=== PATIENT | female | born 1970 | race Caucasian/White ===

== ENCOUNTER → 2018-02-23 11:59 | Outpatient (CLI) | payer BC, SELFPAY ==
[2018-02-23 13:14] LABS: Free T3 3.1 pg/mL (2.18-3.98); T4 Free Direct 0.88 ng/dL (0.76-1.46); Thyroid Stim Hormone (TSH) 2.12 uIU/mL (0.358-3.74)
[2018-02-24 11:28] LABS: Thyroid Peroxidase AB 30 IU/mL (0-34)
[2018-02-25 10:09] LABS: HPV Reflexed? NOT INDICATED
== END ==
PROVIDERS: Visit Provider Obstetrics & Gynecology
DX: N92.5 Other specified irregular menstruation (principal); E04.9 Nontoxic goiter, unspecified; R63.5 Abnormal weight gain; Z12.4 Encounter for screening for malignant neoplasm of cervix
CPT/HCPCS: 36415; 84439; 84443; 84481; 86376; 88175; G0145

== ENCOUNTER → 2018-11-25 12:22 | Outpatient (CLI) | payer BC, SELFPAY ==
--- NOTE | 2018-11-25 12:26 | BI_ITS ---
MAMMOGRAPHY - BILATERAL SCREENING REASON FOR EXAM: Female, 48 years old. Routine annual screening examination. PERTINENT HISTORY: Grandmother with breast cancer. TECHNIQUE: Digital bilateral breast elsa (3D mammographic acquisition) in the CC and MLO projections. 2-D mediolateral oblique (MLO) and craniocaudad (CC) views of both breasts were obtained. CAD: Full Field Digital Mammography with Computer Added Detection was performed. COMPARISON: Comparison is made with prior study dated September 25, 2017 and August 25, 2016. FINDINGS: Breast Composition: The breasts are extremely dense, which lowers the sensitivity of mammography. There are no dominant masses or suspicious calcifications. Stable benign appearing bilateral axillary nodes. No other significant abnormalities are identified. There has been no significant change since the prior study. BI/SCREENING MAMM (CAD), BILAT IMPRESSION: Stable bilateral screening mammogram. Yearly follow-up mammogram recommended. (A) ASSESSMENT CATEGORY: BIRADS Category 2: Benign. A letter regarding these results will be sent to the patient by the facility within 30 days. Approximately 10% of breast cancers are not detected by mammography. A normal mammogram should not delay biopsy of a clinically suspicious abnormality. [id number] Electronically Signed: Clint Morgan MD at 14:03 EST , Service support ,
== END ==
PROVIDERS: Family Provider Family Medicine; PCP Family Medicine; Referring Provider Obstetrics & Gynecology; Visit Provider Obstetrics & Gynecology
DX: Z12.31 Encounter for screening mammogram for malignant neoplasm of breast (principal)
CPT/HCPCS: 77063; 77067

== ENCOUNTER → 2020-09-07 08:44 | Outpatient (CLI) | payer BC, SELFPAY ==
--- NOTE | 2020-09-07 09:01 | US_ITS ---
STUDY: ULTRASOUND BREAST - RIGHT REASON FOR EXAM: Female, 50 years old. Palpable abnormality in the right axilla. TECHNIQUE: Axial and longitudinal images of the RIGHT breast were performed with a high resolution ultrasound transducer. # OF IMAGES: 25 COMPARISON: Comparison is made with prior mammogram done earlier in the day. FINDINGS: RIGHT Breast: 3 benign appearing right axillary lymph nodes are seen. The largest measures 2.2 cm x 2 cm x 1.1 cm. US/Breast Limited Unilateral IMPRESSION: 3 benign appearing axillary lymph nodes are seen. The largest measures 2.2 cm x 2 cm x 1.1 cm ASSESSMENT CATEGORY: BIRADS Category 2: Benign. A letter regarding these results will be sent to the patient by the facility within 30 days. Electronically Signed: Clint Morgan, at 10:37 EST , Service support ,
--- NOTE | 2020-09-07 09:01 | BI_ITS ---
MAMMOGRAPHY - BILATERAL DIAGNOSTIC REASON FOR EXAM: Female, 50 years old. Right axillary lump. PERTINENT HISTORY: Grandmother with breast cancer. TECHNIQUE: Digital bilateral breast elsa (3D mammographic acquisition) in the CC and MLO projections. 2-D mediolateral oblique (MLO) and craniocaudad (CC) views of both breasts were obtained. CAD: Full Field Digital Mammography with Computer Added Detection was performed. COMPARISON: Comparison is made with prior study dated 11/25/2018 and 09/25/2017. FINDINGS: Breast Composition: The breasts are extremely dense, which lowers the sensitivity of mammography. There are no dominant masses or suspicious calcifications. Stable benign-appearing bilateral axillary lymph nodes. No other significant abnormalities are identified. There has been no significant change since the prior study. BI/DIAG MAMM W/CAD, BILAT IMPRESSION: Stable bilateral diagnostic mammogram. With the patient''s history of palpable lump in the right axillary region, correlation with ultrasound is recommended. ASSESSMENT CATEGORY: BIRADS Category 0: Incomplete. Need additional imaging evaluation. A letter regarding these results will be sent to the patient by the facility within 30 days. Approximately 10% of breast cancers are not detected by mammography. A normal mammogram should not delay biopsy of a clinically suspicious abnormality. Electronically Signed: Clint Morgan, at 10:10 EST , Service support ,
== END ==
PROVIDERS: PCP Family Medicine; Referring Provider Obstetrics & Gynecology; Visit Provider Obstetrics & Gynecology
DX: N63.31 Unspecified lump in axillary tail of the right breast (principal); Z80.3 Family history of malignant neoplasm of breast
CPT/HCPCS: 76642; 77062; 77063; 77066; G0279

== ENCOUNTER → 2020-11-12 | Outpatient (CLI) | payer BC, SELFPAY ==
[2020-11-16 13:52] LABS: HPV APTIMA, High Risk Negative (Negative)
== END | disposition home or self-care (01) ==
LOC: LABSPEC 16:07
PROVIDERS: PCP Family Medicine; Visit Provider Obstetrics & Gynecology
DX: Z12.4 Encounter for screening for malignant neoplasm of cervix (principal)
CPT/HCPCS: 87624; 88175; G0145

== ENCOUNTER 2024-11-11 06:05 | Day surgery (SDC) | payer BC, SELFPAY ==
--- NOTE | 2024-11-10 12:49 | PCM.HP.BLA ---
History and Physical Date of Admission: 11/11/24 Expand All Collapse AllExpand All by Default Pre-Op History and Physical HPI: The patient is a 54 year old female presenting for pre-operative visit. She is scheduled for Hysteroscopy D&C and polypectomy, for PMB on 10/2424. Procedure discussed along with risks, benefits and complications. Other alternatives discussed for management. Consent form signed? Yes. PAST MEDICAL HISTORY PAST MEDICAL HISTORY Diagnosis Date ? Endometrial polyp ? Known health problems: none PAST SURGICAL HISTORY PAST SURGICAL HISTORY Procedure Laterality Date ? L'SCOPE DX W/WO BRUSHINGS/WASHINGS checking for endometriosis ? NONE CURRENT MEDICATIONS Current Outpatient Medications Medication Sig Dispense Refill ? buPROPion XL (WELLBUTRIN XL) 150 mg 24 hr tablet No current facility-administered medications for this visit. ALLERGIES: Patient has no known allergies. PERSONAL HISTORY: SOCIAL HISTORY Social History Tobacco Use ? Smoking status: Never ? Smokeless tobacco: Never Vaping Use ? Vaping status: Never Used Substance Use Topics ? Alcohol use: Never ? Drug use: Never FAMILY HISTORY: FAMILY HISTORY FAMILY HISTORY Problem Relation Age of Onset ? Thyroid Nodule Mother REVIEW OF SYMPTOMS: negative except as noted above PHYSICAL EXAMINATION: VITALS: Blood pressure 118/74, height 164.5 cm (5' 4.76), weight 79.8 kg (176 lb), last menstrual period 05/06/2022. GENERAL: The patient is well nourished, well hydrated in no acute distress. , The patient is oriented to time, place, and person. NECK: full range of motion WET PREP: Not indicated Indication Evaluation of abnormal uterine bleeding: postmenopausal bleeding Impression The uterus is anteverted and measures 88 mm x 42 mm x 53 mm. The endometrium is abnormally thickened and echogenic at 8.6 mm. There is an echogenic area within the anterior fundal endometrial cavity with a feeding vessel suspicious for an endometrial polyp that measures 13 mm x 6 mm x 10 mm. The right ovary measures 19 mm x 12 mm x 14 mm. and contains a 6 mm x 5 mm x 6 mm unilocular simple cyst. O-RADS 2 The left ovary measures 20 mm x 12 mm x 14 mm and contains a 11 mm x 4 mm x 7 mm bilocular cyst (single avascular septation) with smooth borders. O-RADS 2 There is no free fluid visualized. Technique: Three dimensional imaging was created on a dedicated stand-alone 3D workstation with images created and archived, and supervised and reviewed by the interpreting physician utilizing images from a US Scan performed on 08/09/24. IMPRESSION: 54yo with PMB, Endometrial polyp PLAN: hysteroscopy, D&C, polypectomy with symphion Pt has been counseled on risks/benefits and alternatives of surgery including but not limited to anesthesia, bleeding, infection, uterine perforation with subsequent injury to pelvic structures including bowel, bladder, ureters and vessels. Pt wishes to proceed with surgery at this time. Pre and post op instructions reviewed I have reviewed and updated past medical and surgical history, medications and allergies Medical Decision Making: Problems: Moderate: New problem with uncertain prognosis Risk: Moderate: Decision on minor surgery w/ risk factors Medical Decision Making Level: 4 - Moderate
[2024-11-11] VITALS (9 sets, daily range): BP systolic 104–125; BP diastolic 74–93; PULSE 61–71; RESP 14–16; TEMP 35.9–36.7; O2SAT 98–100; BMI 29.0
[2024-11-11 06:49] LABS: Hematocrit 39.8 % (37-47); Hemoglobin 13.5 g/dL (12.0-15.0); Mean Corp Hgb Conc 33.9 g/dL (32-36); Mean Corpuscular Volume 85.4 fL (81-99); Mean Platelet Vol. 10.6 fl (6.2-12.0); Platelet Count 254 K/mm3 (150-450); RBC Distribution Width CV 12.5 % (11.6-14.6); RBC Distribution Width SD 38.5 fl (35.1-43.9); Red Blood Count 4.66 M/mm3 (4.2-5.4); White Blood Count 5.9 K/mm3 (4.4-11.0)
[2024-11-11 07:03] LABS: Anion Gap 7 (5-15); BUN 16 mg/dL (7-18); BUN/Creat Ratio 13.4 RATIO (10-20); Chloride 108 mmol/L (98-107); Creatinine, Serum 1.19 mg/dL (0.55-1.02); EST Glomerular Filtration Rate 51 mL/min (>60); Est Glom Filt Rate - Afr Amer 61 mL/min (>60); Estimated Creatinine Clearance 57.44 ml/min; Glucose 92 mg/dL (74-106); Potassium 3.9 mmol/L (3.5-5.1); Sodium Level 139 mmol/L (136-145)
--- NOTE | 2024-11-11 07:19 | PRE.ANES_ITS ---
ASA Classification* ASA Classification ASA Classification: 2 Assessment & Plan Anesthesia* Anesthesia Assessment Anesthesia Assessment: Discussed sedation and/or anesthesia options, risks, benefits, and alternatives with patient/parents/legal guardian/POA. Questions invited. The patient/parents/legal guardian/POA seems to understand and agrees to proceed with anesthesia plan. Reviewed the physical assessment, medical history, allergy history and patient home medications list prior to surgery/procedure/anesthetic and documented any changes. Performed airway and anesthesia risk assessments. Anesthesia Type Anesthesia Type: MAC Anesthesia Focused Assessment* Temperature: 97.6 F Pulse Rate: 71 Blood Pressure: 120/93 Respiratory Rate: 16 Pulse Ox: 100 Airway Assessment Mouth opens: >3 cm Mallampati Score: II Teeth Condition: Intact and Caps/Crowns (botton left) Neck Range of motion (ROM): Full ROM Focused Labs Anesthesia Preop lab: CBC WBC 5.9 K/mm3 (4.4-11.0) 11/11/24 06:39 RBC 4.66 M/mm3 (4.2-5.4) 11/11/24 06:39 Hgb 13.5 g/dL (12.0-15.0) 11/11/24 06:39 Hct 39.8 % (37-47) 11/11/24 06:39 Plt Count 254 K/mm3 (150-450) 11/11/24 06:39 CHEMISTRY Potassium 3.9 mmol/L (3.5-5.1) 11/11/24 06:39 Sodium 139 mmol/L (136-145) 11/11/24 06:39 BUN 16 mg/dL (7-18) 11/11/24 06:39 Creatinine 1.19 mg/dL (0.55-1.02) H 11/11/24 06:39 Glucose 92 mg/dL (74-106) 11/11/24 06:39 TSH 2.12 uIU/mL (0.358-3.74) 02/23/18 12:03 COAG Pre-Assessment Diagnosis/Proposed Procedure Planned Operative Procedure(s): HYSTEROSCOPY D&C POLYPECTOMY Anesthesia History 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 When Was Last Pacemaker Check QUESTION #4 FULL TEXT: You/Your Family Experience fever (hyperthermia) with Anesthesia Last Oral Intake Last Oral intake: Last Oral Intake NPO since 22:00 11/11/24 06:29 Meds taken in AM with sips of No 11/11/24 06:29 water? Meds patient instructed to take am of surgery PONV PONV - venereal disease investigator: PONV - venereal disease investigator Female Yes 11/04/24 13:26 HX of Motion Sickness Yes 11/04/24 13:26 HX of N/V After Surgery No 11/04/24 13:26 Non-Smoker Yes 11/04/24 13:26 Duration of Surgery greater No 11/04/24 13:26 than 60 minutes Number of Risk Factors 3 11/04/24 13:26 PONV Score Moderate Risk 11/04/24 13:26 Height & Weight Height & Weight: Anesthesia: Height & Weight Height 5 ft 5 in 11/11/24 06:29 Weight: 79 kg 11/11/24 06:29 Body Mass Index (BMI) 29.0 11/11/24 06:29 Respiratory Assessment Respiratory Assessment - venereal disease investigator: Respiratory Tract Infection Hx - venereal disease investigator Hx Respiratory Tract Infection No 11/04/24 13:26 STOP Sleep Apnea STOP Sleep Apnea - venereal disease investigator: STOP Sleep Apnea - venereal disease investigator Hx Hypertension No 11/04/24 13:26 Hx Sleep Apnea No 11/04/24 13:26 CPAP BIPAP Do you snore loudly (louder No 11/04/24 13:26 than talking or can be heard Do you often feel tired/ Yes 11/04/24 13:26 fatigued/ sleepy during daytime? Has anyone observed you stop Yes 11/04/24 13:26 breathing during sleep? STOP Results Positive 11/04/24 13:26 QUESTION #5 FULL TEXT : Do you snore loudly (louder than talking or can be heard through closed doors)? 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 Specify any problems Hx of Preganancy in last 3 No 11/04/24 13:26 Months Nurse Filling Out Transfusion DSCHRIBER 11/04/24 13:26 & Questions: Date: 11/04/24 11/04/24 13:26 Time: 13:27 11/04/24 13:26 Patient unable to answer at this time (ie. confused, unrespo /Reproduction History /Reproductive History - venereal disease investigator: /Reproductive Hx- venereal disease investigator Hx Now No 11/04/24 13:26 Gestational Age (in weeks): EDC: Hx Hx Para Hx Section SAB No 11/04/24 13:26 [facility] Medical History (Updated 11/04/24 @ 13:34 by Tuyet Castaneda) Diabetes Post-menopausal Wears contact lenses Depression Anxiety High cholesterol Restless legs Heartburn Non-smoker Cardiology follow-up encounter History of stress test Home Medications ?Medication ?Instructions ?Recorded ?Last Taken ?Type bupropion HCl 150 mg 24 hr tablet, 150 mg PO DAILY 11/04/24 Unknown History extended release (Wellbutrin XL) ergocalciferol (vitamin D2) 1,250 1,250 mcg PO FR 11/04/24 Unknown History mcg (50,000 unit) capsule tirzepatide (weight loss) 2.5 2.5 mg subcut FR 11/04/24 11/04/24 History mg/0.5 mL subcutaneous pen injector Allergy/AdvReac Type Severity Reaction Status Date / Time No Known Allergies Allergy Verified 11/11/24 06:28 Surgical History (Updated 11/04/24 @ 13:34 by Tuyet Castaneda) Hx of colonoscopy Hx of laparoscopy Social History Smoking Status: Never smoker Review of Systems (Anesthesia) ROS Narrative System reviewed and no additional complaints, except as documented.
--- NOTE | 2024-11-11 07:30 | EMB_PTH ---
PATIENT: MUNA DE LA VEGA LOC: [facility] [place] U#:[id number] AGE/SX: 54/F ROOM: RE11/11/[address]: Dr. Roberta Mcclendon, MDDOB: 1970 BED: DIS: 11/11/2024 SPEC #: [id number] RECD: 11/11/24 10:13 STATUS: KIA YEIMI #: [id number] JAN: 11/11/24 07:[address]: Roberta Mcclendon DEPT: SURGICAL PATHOLOGY RECD BY: Gabriel De La Torre ENTERED: 11/11/24 10:34 SP TYPE: ENDOM BX/C TOYA DR: Mike Kline PA-C Tissues: Endometrium, NOS Procedures: Surgery Specimen Level IV HEADER OPERATION: Hysteroscopy, D&C, polypectomy PRE-OP DIAGNOSIS: Endometrial polyp TISSUE SUBMITTED: Endometrial polyp and curettings MICROSCOPIC DIAGNOSIS Endometrial polyp and curettings: Fragments of benign endometrial polyp with focal mild cystic endometrial hyperplasia without atypia. 11/14/2024 MICROSCOPIC DESCRIPTION Slides are reviewed. GROSS DESCRIPTION Received in fixative is one container labeled with the patient's name and designated Endometrial polyp and curettings. The specimen consists of multiple irregular fragments of hernández indurated tissue that in aggregate measure 7.5 x 3 x 0.3 cm. The specimen is totally submitted in three cassettes. 11/11/2024 TC:5 CPT:01166
--- NOTE | 2024-11-11 07:58 | OP.PCM_ITS ---
Operative Report (Standard) Operative Information Date of Procedure: 11/11/24 Pre-Operative Diagnosis: PMB, endometrial polyp Post-Operative Diagnosis: same Surgery/Procedure Performed: hysteroscopy, D&C, polypectomy airline captain: Yes Mortar Carrier: BRUNO Burnett Tasks completed by office manager executive assistant: Other (dilating cervix) Additional assistant to the dean?: No Type of Anesthesia: MAC RN Documented Start/Stop Times: Operation Date: 11/11/24 07:30 Case Time Into Pre-Op 11/11/24 06:09 Out of Pre-Op 11/11/24 07:29 Anesthesia Start 11/11/24 07:30 Into Room 11/11/24 07:30 Procedure Start 11/11/24 07:48 Procedure End 11/11/24 07:58 Procedure Start Time: 07:48 Procedure Stop Time: 07:58 Select all DRAINS/GRAFTS/IMPLANTS that apply: None Estimated Blood Loss: <5cc Fluids Replaced: none- IVF shortage Specimen collected: Yes Description of specimen(s) removed: EM polyps and EM curettings Description of surgery: Informed consent was obtained the patient was taken the operating room she was placed in supine position. She was given anesthesia. She was then placed in the [facility] where she was prepped and draped in the normal sterile fashion. At this time the weighted speculum was placed in the posterior fornix of vagina. Single-tooth tenaculum was used to gently grasp the anterior lip the cervix. At this time the uterine cavity was sounded to approximately 8 cm. Gentle dilatation was performed once adequate dilatation of the cervix was achieved the hysteroscope using normal saline as a distention medium was placed. large endometrial polyp noted. Symphion resecting device used to obtain endometrial curettings and to perform polypectomy. Tissue will be sent to pathology for evaluation. able to visualize tubal ostia after removal of polyp. Tenaculum removed. Good hemostasis. Instrument, lap count correct x 2. fluid deficit 750cc. Vaginal Sweep was negative. Surgical Findings: 2 endometrial polyps. Complications Complications: No Admit VTE Documentation VTE Present on Admission: Yes VTE Mechan Device Prophylaxis: SCD's VTE Pharm Prophylaxis ordered?: No Reason prophylaxis not ordered: Treatment Not Indicated
--- NOTE | 2024-11-11 08:02 | PCM.DC ---
Discharge Instructions Diet Discharge Diet: No restrictions DC O2, CPAP, BIPAP needs Home O2 Discharge instructions: No Dressing / Incision May resume sexual activity in: 1 week Dressing / Incision Call your doctor if you observe: Fever of 101 or Higher, Inability to urinate, Using more than 1 pad per hour and Uncontrolled pain Follow Up Care Please Follow Up With: Roberta Mcclendon MD When: i will call with pathology in 1 week- if you have any concerns please call for post op appt [phone] Test Results: Test results from this visit will be discussed in further detail at your follow-up appointment, if applicable. Discharge Plan Admission Attending Provider: Roberta Mcclendon Primary Care Provider: Mike Kline Instructions Print Language: Puerto Rican Discharge Orders/Prescriptions Prescriptions: No Action tirzepatide (weight loss) 2.5 mg/0.5 mL pen injector 2.5 mg subcut FR Rx Instructions: 0.25MG WEEKLY bupropion HCl [Wellbutrin XL] 150 mg tablet extended release 24 hr 150 mg PO DAILY ergocalciferol (vitamin D2) 1,250 mcg (50,000 unit) capsule 1,250 mcg PO FR Referrals / Follow Up: Derek Edwards MD [Non-Staff] - Disposition Disposition (needs filled in before D/C Order can be placed): Home, Self Care
--- NOTE | 2024-11-11 08:07 | PCM.POST.ANE ---
Anesthesia: Postop Eval I Current Vital Signs Temperature: 98.1 F Pulse Rate: 64 Blood Pressure: 104/74 Respiratory Rate: 14 Pulse Ox: 98 Assessment Airway patent: Yes Spontaneous unlabored respirations: Yes nausea: No Vomiting: No Anesthesia Complication: No Fluid Hydration Crystalloid volume administer (ml): 30 Total IV fluid infused: 30 Progress Note Anesthesia document: Postop Eval 1 completed: Yes
[2024-11-11] MEDS: oxyCODONE 5 MG Tablet PO (08:49)
[2024-11-11] MEDS: Acetaminophen 325 MG Tablet PO (08:49)
--- NOTE | 2024-11-11 10:50 | POSTOPAN2_ITS ---
Anesthesia Postop Eval I Sum Postop Eval Completion status Anesthesia document: Postop Eval 1 completed: Yes Anesthesia Postop Eval I Summary Anesthesia Postop Eval I Summary: Anesthesia Postop Eval I: Assessment Summary Airway patent Yes 11/11/24 08:07 VP [email or web address] Spontaneous unlabored Yes 11/11/24 08:07 VP [email or web address] respirations Mental status nausea No 11/11/24 08:07 VP [email or web address] Vomiting No 11/11/24 08:07 VP [email or web address] Anesthesia Postop Eval I: Fluid Summary Crystalloid volume administer 30 11/11/24 08:07 VP [email or web address].[email or web address] (ml) Colloids volume administered ( ml) Blood Product volume administered (ml) Total IV fluid infused 30 11/11/24 08:07 VP [email or web address] Anesthesia Postop Eval I: Summary Notes Anesthesia Complication No 11/11/24 08:07 VP [email or web address] Anesthesia Complication Comment: Post-operative progress note Anesthesia: Postop Eval II Evaluation Mental status: Awake Pain Level: 0 nausea: No Vomiting: No Complications Anesthesia Complication: No
--- NOTE | 2024-11-11 10:50 | PCM.POSTANE2 ---
Anesthesia Postop Eval I Sum Postop Eval Completion status Anesthesia document: Postop Eval 1 completed: Yes Anesthesia Postop Eval I Summary Anesthesia Postop Eval I Summary: Anesthesia Postop Eval I: Assessment Summary Airway patent Yes 11/11/24 08:07 SUPERVISOR [email or web address] Spontaneous unlabored Yes 11/11/24 08:07 SUPERVISOR [email or web address] respirations Mental status nausea No 11/11/24 08:07 SUPERVISOR [email or web address] Vomiting No 11/11/24 08:07 SUPERVISOR [email or web address] Anesthesia Postop Eval I: Fluid Summary Crystalloid volume administer 30 11/11/24 08:07 SUPERVISOR [email or web address] (ml) Colloids volume administered ( ml) Blood Product volume administered (ml) Total IV fluid infused 30 11/11/24 08:07 SUPERVISOR [email or web address] Anesthesia Postop Eval I: Summary Notes Anesthesia Complication No 11/11/24 08:07 SUPERVISOR [email or web address] Anesthesia Complication Comment: Post-operative progress note Anesthesia: Postop Eval II Evaluation Mental status: Awake Pain Level: 0 nausea: No Vomiting: No Complications Anesthesia Complication: No
== END 2024-11-11 09:38 | disposition home or self-care (01) ==
LOC: SDC 06:06 → AC 06:07
PROVIDERS: PCP Physician Assistant; Referring Provider Obstetrics & Gynecology; Visit Provider Obstetrics & Gynecology
PROC: 0UB98ZZ Excision of Uterus, Via Natural or Artificial Opening Endoscopic (ICD-10-PCS; CPT 58558; principal; 2024-11-11 07:15)
DX: N84.0 Polyp of corpus uteri (principal); E11.9 Type 2 diabetes mellitus without complications; N83.202 Unspecified ovarian cyst, left side; F32.A Depression, unspecified; F41.9 Anxiety disorder, unspecified; Z79.85 Long-term (current) use of injectable non-insulin antidiabetic drugs; Z79.899 Other long term (current) drug therapy
CPT/HCPCS: 58558; 00952; 80048; 85027; 88305; A4216; J2405